=== PATIENT | female | born 1940 | race Caucasian/White ===

== ENCOUNTER 2018-11-30 14:00 | Inpatient (IN) | payer MEDICARE, MEDICAID ==
[~2018-11-30] VITALS: Ht 165.1 cm; Wt 81.5 kg
[~2018-11-30 14:00] MED LIST: BETAMETHASONE D1 CRE TP; CLARITIN 1010 MG/TAB PO; KLOR-CON M2020 MEQ PO; LASIX 40MG TABL40 MG PO; LIPITOR20 MG PO; PLAVIX 75MG TAB75 MG PO; PLETAL 100MG T100 MG PO; PRIL40 PO; PRINIVIL10 MG PO; SEA OMEGA 301 SGL PO; TOPROL XL 25MG25 MG PO; ULTRAM 50MG TAB50 MG PO; ZANTAC 150MG T150 MG PO
--- NOTE | 2018-12-01 07:00 | NUR ---
RECEIVED REPORT FROM MARY TORRES
[2018-12-01 08:00] VITALS: BP 133/52; PULSE 70; TEMP 97.4
--- NOTE | 2018-12-01 09:00 | NUR ---
ASSESSMENT COMPLETED.PT AWAKE.PT AWAKE,A/O X3.DENIES PAIN OR DISCOMFORT AT THIS TIME.BREATHING EVEN AND UNLABORED.LSCTA,PT STATES SHE FEELS BETTER AFTER BLOOD TRANSFUSION.HGB WAS 8.0.PT DENIES DIZZINES OR WEAKNESS.NO NEEDS VOICED AT THIS TIME.CALL LIGHT IN REACH
[2018-12-01 12:00] VITALS: BP 132/56; PULSE 72; TEMP 98.3
--- NOTE | 2018-12-01 13:34 | NUR ---
Initial visit; Patient thanked General Merchandise Salesperson for looking in on her and visiting and wishing her well.
[2018-12-01 14:10] LABS: INR 1.1 (0.8-3.0); PARTIAL THROMBOPLASTIN TIME 30.1 SECONDS (26.0-37.0); PROTHROMBIN TIME 12.3 SECONDS (9.7-12.8)
[2018-12-01 14:37] LABS: ALBUMIN 3.1 gm/dL (3.5-5.0); ANION GAP 6 mmol/L (7-16); BLOOD UREA NITROGEN 26 mg/dL (7-17); CALCIUM 8.4 mg/dL (8.4-10.2); CARBON DIOXIDE 25 mmol/L (22-30); CHLORIDE 102 mmol/L (98-107); CREATININE, serum 0.91 mg/dL (0.52-1.25); GLUCOSE 86 mg/dL (74-106); PHOSPHOROUS 4.2 mg/dL (2.5-4.5); POTASSIUM 4.2 mmol/L (3.4-5.0); SODIUM 133 mmol/L (137-145)
[2018-12-01 14:39] LABS: ALANINE AMINOTRANSFERASE 16 U/L (9-52); ALBUMIN 2.9 gm/dL (3.5-5.0); ALKALINE PHOSPHATASE 58 U/L (50-136); ANION GAP 7 mmol/L (7-16); AST,SGOT 15 U/L (15-37); BILIRUBIN,TOTAL < 0.1 mg/dL (0.0-1.0); BLOOD UREA NITROGEN 21 mg/dL (7-17); CALCIUM 8.5 mg/dL (8.4-10.2); CARBON DIOXIDE 26 mmol/L (22-30); CHLORIDE 103 mmol/L (98-107); CREATININE, serum 0.98 mg/dL (0.52-1.25); GLUCOSE 109 mg/dL (74-106); IRON,SERUM 16 ug/dL (35-150); LACTATE DEHYDROGENASE 379 U/L (313-618); POTASSIUM 4.5 mmol/L (3.4-5.0); SODIUM 135 mmol/L (137-145); TOTAL IRON BINDING CAPACITY 356 ug/dL (265-497); TOTAL PROTEIN 5.6 gm/dL (6.4-8.2)
[2018-12-01 15:18] LABS: ALANINE AMINOTRANSFERASE 20 U/L (9-52); ALKALINE PHOSPHATASE 64 U/L (50-136); AST,SGOT 29 U/L (15-37); BILIRUBIN,TOTAL 0.2 mg/dL (0.0-1.0); TOTAL PROTEIN 6.2 gm/dL (6.4-8.2)
[2018-12-01 15:36] LABS: BASO % 0.4 % (0.0-2.0); EOS # 0.4 (0.0-0.7); EOS % 3.6 % (0-4.0); GRAN # 7.2 (1.4-6.5); GRAN % 70.6 % (42.2-75.2); LYMPH # 1.6 (1.2-3.4); LYMPH % 15.4 % (20.0-51.0); MEAN CELL VOLUME 81 fl (80.0-100.0); MEAN CORPUSCULAR HGB CONC 27 g/dl (33.0-37.0); MEAN PLATELET VOLUME 8.8 fl (7.4-10.4); MONO % 9.6 % (1.7-9.3); PLATELET COUNT 401 K/mm3 (130-400); RED BLOOD COUNT 2.57 M/mm3 (4.10-5.30); REDCELL DISTRIBUTION WIDTH-CV 16.5 % (11.5-14.5)
[2018-12-01 15:37] LABS: HEMATOCRIT 20.8 % (37.0-47.0); HEMOGLOBIN 5.6 g/dl (12.5-16.0); MEAN CORPUSCULAR HEMOGLOBIN 22 pg (27.0-31.0)
[2018-12-01 15:39] LABS: BASO # 0.1 (0.0-0.2); BASO % 0.7 % (0.0-2.0); EOS # 0.4 (0.0-0.7); EOS % 3.6 % (0-4.0); GRAN # 6.7 (1.4-6.5); GRAN % 68.7 % (42.2-75.2); LYMPH # 1.6 (1.2-3.4); LYMPH % 16.8 % (20.0-51.0); MEAN CELL VOLUME 81 fl (80.0-100.0); MEAN CORPUSCULAR HEMOGLOBIN 24 pg (27.0-31.0); MEAN CORPUSCULAR HGB CONC 30 g/dl (33.0-37.0); MEAN PLATELET VOLUME 8.6 fl (7.4-10.4); MONO % 9.8 % (1.7-9.3); PLATELET COUNT 456 K/mm3 (130-400); RED BLOOD COUNT 3.36 M/mm3 (4.10-5.30); REDCELL DISTRIBUTION WIDTH-CV 16.4 % (11.5-14.5)
[2018-12-01 15:40] LABS: HEMATOCRIT 27.1 % (37.0-47.0)
[2018-12-01 16:00] VITALS: BP 132/56; PULSE 72; TEMP 98.3
--- NOTE | 2018-12-01 16:20 | NUR ---
SW met with patient about discharge planning. Patient lives independently at home with her friend. Patient's PCP is Agnieszka Leonardo at [facility] in [place] and she obtains prescriptions from [facility] in . Patient does not use any DME or home health services but it open to home health if needed. Patient reports her son is her DPOA but copies are not in the EMR. SW does not anticipate any discharge needs but will continue to follow.
--- NOTE | 2018-12-01 18:41 | NUR ---
Pt laying in bed, pt IV infiltrated, removed IV started new one. Pt denies any dizziness or weakness. SCDs to BLE on. IV iron infused. Pt denies any needs at this time. Call light in reach.
--- NOTE | 2018-12-01 20:30 | NUR ---
Initial shift assessment done- denies pain, denies SOB, Understands we need a stool specimen for occult blood--scd,s on, no requests
[2018-12-01 21:26] VITALS: BP 115/45; PULSE 70
[2018-12-02 01:27] VITALS: BP 131/46; PULSE 72
--- NOTE | 2018-12-02 06:12 | NUR ---
Sitting at edge of bed-rubbing knee, stataes having knee pain. Will give tramadol as ordered for pain. Did sleep fair during the night
--- NOTE | 2018-12-02 09:00 | NUR ---
Initial assessment completed. No pain or needs at this time. The call light is in place.
[2018-12-02 09:07] LABS: RETIC # 0.12 M/mm3 (0.02-0.16); RETIC % 3.5 % (0.5-3.52)
[2018-12-02 09:30] VITALS: BP 95/59; PULSE 71; TEMP 97.9
[2018-12-02 13:00] VITALS: BP 101/62; PULSE 71; TEMP 97.2
--- NOTE | 2018-12-02 16:00 | NUR ---
Discharge education completed with the patient and her daughter. All questions answered per this nurse. INT removed without difficulty. Escorted out via wheelchair and staff.
[2018-12-02 16:44] VITALS: BP 95/53; PULSE 70; TEMP 97.7
--- NOTE | 2018-12-02 19:39 | NUR ---
PRN tramadol given at this time for knee and back pain. Will continue to monitor for changes.
--- NOTE | 2018-12-02 19:39 | NUR ---
Report given to MARY Pratt to pain or needs reported the call light is in place.
[2018-12-02 19:46] VITALS: BP 91/49; PULSE 71; TEMP 97.6
--- NOTE | 2018-12-02 20:30 | NUR ---
Initial shift assessment done-states having some left knee pain- slightly swollen--will give tramadol as ordered- up on own in room- steady on feet--states has not had a bowel movement in 24 hours- will give prune juice tonight
[2018-12-03 00:56] VITALS: BP 115/45; PULSE 68; TEMP 97.5
[2018-12-03 04:00] VITALS: BP 114/54; PULSE 67; TEMP 98.4
--- NOTE | 2018-12-03 05:21 | NUR ---
Quiet night- no requests, did sleep for about 4 hours,otherwise up ad jessenia in room
[2018-12-03 09:15] VITALS: BP 79/33; PULSE 78; TEMP 97.9
--- NOTE | 2018-12-03 09:40 | NUR ---
Dr. De León called to discuss daily labs, PT and patient inability to have a bowel movement. Also, that GI would not be available until Tuesday. New orders were provided at this time.
--- NOTE | 2018-12-03 11:50 | NUR ---
No change this morning. Ducolax proivided to aid constipation. Will continue to monitor for results.
[2018-12-03 12:11] VITALS: BP 101/53; PULSE 67; TEMP 97.9
[2018-12-03 15:21] LABS: BASO # 0.1 (0.0-0.2); BASO % 0.4 % (0.0-2.0); EOS # 0.5 (0.0-0.7); GRAN % 75.8 % (42.2-75.2); LYMPH # 1.3 (1.2-3.4); LYMPH % 9.6 % (20.0-51.0); MEAN CELL VOLUME 85 fl (80.0-100.0); MEAN CORPUSCULAR HGB CONC 29 g/dl (33.0-37.0); MEAN PLATELET VOLUME 8.5 fl (7.4-10.4); MONO # 1.3 (0.1-0.6); MONO % 9.6 % (1.7-9.3); PLATELET COUNT 375 K/mm3 (130-400); RED BLOOD COUNT 3.47 M/mm3 (4.10-5.30); REDCELL DISTRIBUTION WIDTH-CV 17.8 % (11.5-14.5)
[2018-12-03 15:24] LABS: HEMATOCRIT 29.5 % (37.0-47.0); HEMOGLOBIN 8.4 g/dl (12.5-16.0); MEAN CORPUSCULAR HEMOGLOBIN 24 pg (27.0-31.0)
[2018-12-03 15:30] LABS: CALCIUM 8.6 mg/dL (8.4-10.2); CREATININE, serum 1.17 mg/dL (0.52-1.25); POTASSIUM 4.6 mmol/L (3.4-5.0)
[2018-12-03 16:00] VITALS: BP 118/65; PULSE 96; TEMP 97.8
--- NOTE | 2018-12-03 19:28 | NUR ---
SPOKE WITH PATIENT REGARDING CHANGE IN INHALER FREQUENCY. PATIENT UNDERSTANDS TO CALL IF SHE FEEL THE NEED FOR INHALER. SHE STATES SHE IS NOT SOB AT THIS TIME.
[2018-12-03 19:48] VITALS: BP 115/71; PULSE 67; TEMP 97.4
--- NOTE | 2018-12-03 19:48 | NUR ---
Taking bowel prep well. No pain or needs. Report given to MARY Manley to resume care.
--- NOTE | 2018-12-03 22:00 | NUR ---
Initial shift assessment done- states having dark black liquid stool with bowel prep- instructed to save next for nurse to see- states understanding- has about 300cc left of bowel prep. Npo after MN for 729 EGD/Colonoscopy. States left kneeis swollen and pain ful 5/10- will give an Ultram for pain control
[2018-12-04] VITALS (13 sets, daily range): BP systolic 106–136; BP diastolic 35–77; PULSE 63–77; TEMP 97.4–98.2
--- NOTE | 2018-12-04 05:39 | NUR ---
Did get about 3 hours of sleep once the bolwel prep was completed- stool clear with black sediment--NPO
[2018-12-04 06:06] LABS: BASO # 0.1 (0.0-0.2); BASO % 0.5 % (0.0-2.0); EOS # 0.5 (0.0-0.7); EOS % 4.4 % (0-4.0); GRAN # 7.9 (1.4-6.5); GRAN % 72.2 % (42.2-75.2); LYMPH # 1.5 (1.2-3.4); LYMPH % 13.2 % (20.0-51.0); MEAN CELL VOLUME 84 fl (80.0-100.0); MEAN CORPUSCULAR HGB CONC 28 g/dl (33.0-37.0); MEAN PLATELET VOLUME 8.8 fl (7.4-10.4); MONO % 9.2 % (1.7-9.3); PLATELET COUNT 369 K/mm3 (130-400); RED BLOOD COUNT 3.43 M/mm3 (4.10-5.30); REDCELL DISTRIBUTION WIDTH-CV 17.9 % (11.5-14.5)
[2018-12-04 06:10] LABS: HEMATOCRIT 28.9 % (37.0-47.0); HEMOGLOBIN 8.2 g/dl (12.5-16.0); MEAN CORPUSCULAR HEMOGLOBIN 24 pg (27.0-31.0)
[2018-12-04 06:27] LABS: CALCIUM 8.6 mg/dL (8.4-10.2); CREATININE, serum 0.91 mg/dL (0.52-1.25); POTASSIUM 4.2 mmol/L (3.4-5.0)
--- NOTE | 2018-12-04 07:15 | NUR ---
Pt left for EGD/colon at this time.
--- NOTE | 2018-12-04 08:49 | NUR ---
Pt back in room. Post op vitals taken. Pt complains of midl headache. prn to be administered , denies shortness of breath. Pt inquried on when she would be able to resume diet, explained she would be able to eat as soon as the order is put in. Pt denies any other needs at this time. Call [facility] in reach.
--- NOTE | 2018-12-04 09:41 | NUR ---
Pt lying in bed. Pt states she feels tired but her headache is gone now. Pt ready to order food. Medications administered per emar, pt questioned why she did not have lisinopril. Explained her blood pressure is low and it has not been ordered. Morning assessment completed. Call light in reach.
--- NOTE | 2018-12-04 15:56 | NUR ---
SW met with patient to present IM and verbally discuss the contents. Patient is agreeable and signed the form. Copy denied and original placed on chart. Patient is dc home today with no unmet discharge needs.
--- NOTE | 2018-12-04 16:59 | NUR ---
Pt sitting in bed, given discharge instructions. Pt had no questions and stated she understood all instructions. Removed INT to RF, catheter tip intact no redness or swelling noted. Escorted pt and friend to visitor drop off via wheelchair.
== END 2018-12-04 17:00 | disposition home or self-care (01) | DRG 812 ==
LOC: MEDICAL 14:00
PROVIDERS: Internal Medicine Gastroenterology; ADMIT Internal Medicine Nephrology
PROC: 30233N1 Transfusion of Nonautologous Red Blood Cells into Peripheral Vein, Percutaneous Approach (ICD-10-PCS; 2018-11-30)
PROC: 0DJD8ZZ Inspection of Lower Intestinal Tract, Via Natural or Artificial Opening Endoscopic (ICD-10-PCS; principal; 2018-12-04 07:00)
PROC: 0DB68ZX Excision of Stomach, Via Natural or Artificial Opening Endoscopic, Diagnostic (ICD-10-PCS; principal; 2018-12-04 07:00)
DX: D50.9 Iron deficiency anemia, unspecified (principal); K92.1 Melena; I12.9 Hypertensive chronic kidney disease with stage 1 through stage 4 chronic kidney disease, or unspecified chronic kidney disease; I73.9 Peripheral vascular disease, unspecified; K21.9 Gastro-esophageal reflux disease without esophagitis; E78.5 Hyperlipidemia, unspecified; Z80.51 Family history of malignant neoplasm of kidney; J44.9 Chronic obstructive pulmonary disease, unspecified; Z88.2 Allergy status to sulfonamides; Z88.8 Allergy status to other drugs, medicaments and biological substances; Z91.040 Latex allergy status; N18.1 Chronic kidney disease, stage 1; K57.30 Diverticulosis of large intestine without perforation or abscess without bleeding; K64.0 First degree hemorrhoids; K31.7 Polyp of stomach and duodenum; K44.9 Diaphragmatic hernia without obstruction or gangrene
CPT/HCPCS: J2704; J2916; J7030; P9016

== ENCOUNTER 2019-07-04 06:38 | Day surgery (SDC) | payer MEDICARE, MEDICAID ==
[~2019-07-04] VITALS: Ht 165.1 cm; Wt 68.5 kg
[2019-07-04 07:02] VITALS: BP 126/86; PULSE 107; TEMP 97.3
[2019-07-04] MEDS ORDERED: FERROUSAL325 MG PO (07:34)
[2019-07-04] MEDS ORDERED: VITAMIN C500 MG PO (07:35)
[2019-07-04] MEDS ORDERED: HAIRSKINNAILS PO (07:35)
[2019-07-04] MEDS ORDERED: CENTRUM SILVER1 CTB PO (07:38)
[2019-07-04] MEDS ORDERED: VITAMIN D 1001000 IU PO (07:39)
[2019-07-04] MEDS ORDERED: BENADRYL50 MG PO (07:40)
[2019-07-04] MEDS ORDERED: SLEEP AID50 MG PO (07:40)
[2019-07-04 09:11] VITALS: BP 127/96; PULSE 96; TEMP 98.4
--- NOTE | 2019-07-04 09:11 | NUR ---
The patient arrived back to [facility] from the endoscopy suite at this time. The patient appears alert and oriented and denies any pain or nausea at this time. The patient has oxygen in place at 3L per nasal cannula. The patient's post procedure vital signs were started at this time. The patient agrees to try some apple juice at this time. The nurse attempted to locate the patient's family at this time but was unable to find them. Will bring the family back to the patient's bedside when they arrive. Will continue to monitor the patient.
[2019-07-04 09:26] VITALS: BP 122/61; PULSE 85
--- NOTE | 2019-07-04 09:26 | NUR ---
The patient appears to be tolerating the apple juice well. The patient's family was located and brought back to be her bedside. Vital signs appear stable. The patient does report some discomfort under her left breast at this time. Radiology has been called to take the chest x-ray as ordered.
--- NOTE | 2019-07-04 09:35 | NUR ---
Radiology is at the patient's bedside to complete the post thoracentesis chest x-ray as ordered. The nurse asked radiology that she be called with the results so the patient can be discharged.
--- NOTE | 2019-07-04 09:41 | NUR ---
The patient is sitting up in bed watching television and appears to be resting comfortably on the cart at this time. The patient's vital signs appear stable. Call light remains within reach. The patient's family stepped out to go to their truck. Will continue to monitor the patient.
[2019-07-04 09:43] VITALS: BP 129/82; PULSE 85
[2019-07-04 09:49] LABS: PLEURAL FLUID RBC 3000 /mm3 (0-0); PLEURAL FLUID WBC 1752 /mm3
[2019-07-04 09:53] LABS: PLEURAL FLUID APPEARANCE CLOUDY; PLEURAL FLUID COLOR YELLOW
--- NOTE | 2019-07-04 09:55 | NUR ---
Discharge instructions were reviewed with the patient at this time. She verbalized understanding and has no questions for the nurse at this time. The patient's IV to her left hand was removed and a pressure dressing was applied to the site. The nurse instructed the patient to get dressed while we wait for the results of her chest x-ray and Dr. Apodaca to come and talk with her.
[2019-07-04 10:08] LABS: GLUCOSE,PLEURAL FLUID 109 mg/dL; TOTAL PROTEIN,PLEURAL FLUID 2.5 gm/dL
--- NOTE | 2019-07-04 10:08 | NUR ---
The patient has spoke with Dr. Apodaca and her chest x-ray results were negative for a pneumothorax. He has okayed her to be discharged home. She was escorted out via wheelchair to a private vehicle by ABEL Guadarrama. The patient's belongings and discharge paperwork were sent with her. The patient's family is present to drive her home.
== END 2019-07-04 10:08 | disposition home or self-care (01) ==
LOC: SDCO 06:38
PROVIDERS: Internal Medicine Pulmonary Disease
DX: C34.12 Malignant neoplasm of upper lobe, left bronchus or lung (principal); J91.8 Pleural effusion in other conditions classified elsewhere; J90 Pleural effusion, not elsewhere classified; C17.9 Malignant neoplasm of small intestine, unspecified; D50.9 Iron deficiency anemia, unspecified; I10 Essential (primary) hypertension; I48.91 Unspecified atrial fibrillation; Z79.02 Long term (current) use of antithrombotics/antiplatelets; Z79.899 Other long term (current) drug therapy; Z90.49 Acquired absence of other specified parts of digestive tract; Z98.51 Tubal ligation status; Z80.9 Family history of malignant neoplasm, unspecified; Z82.49 Family history of ischemic heart disease and other diseases of the circulatory system; K21.9 Gastro-esophageal reflux disease without esophagitis; E78.00 Pure hypercholesterolemia, unspecified; Z86.73 Personal history of transient ischemic attack (TIA), and cerebral infarction without residual deficits
CPT/HCPCS: J2704; J7120